=== PATIENT | male | born 1955 | race Caucasian/White ===

== ENCOUNTER 2019-07-08 20:34 | Inpatient (IN) ==
[2019-07-08] MEDS ORDERED: TYLENOL LIQUID PO ONE (20:56)
[2019-07-08 22:18] LABS: BASO# 0.03 X1000 (0.0-0.2); BASO% 0.3 % (0.0-0.8); EOS# 0.11 X1000 (0.0-0.7); EOS% 1.1 % (0.0-10.0); HEMATOCRIT 47.9 % (42.0-52.0); HEMOGLOBIN 16.2 g/dL (14.0-18.0); IMM GRAN# 0.04 X1000 (0.0-0.04); IMM GRAN% 0.4 % (0.0-0.5); LYMPH# 1.67 X1000 (1.2-3.4); LYMPH% 16.4 % (20.5-51.1); MCH 28.2 PG (27-31); MCHC 33.8 g/dL (33-37); MCV 83.3 FL (81-99); MONO# 0.58 X1000 (0.11-0.59); MONO% 5.7 % (1.7-9.3); MPV 11.3 FL (7.4-10.4); NEUT# 7.77 X1000 (1.4-6.5); NEUT% 76.1 % (42.2-75.2); PLT 150 X1000 (130-400); RBC 5.75 XMIL (4.7-6.1); RDW 17.5 % (11.5-14.5)
[2019-07-08 22:46] LABS: ALB/GLOB RATIO 1.4; ALBUMIN 4.2 g/dL (3.5-5.0); CALCIUM 8.9 mg/dL (8.8-10.2); CREATININE 1.3 mg/dL (0.7-1.2); POTASSIUM 4.1 mmol/L (3.5-5.1); TOTAL BILIRUBIN 0.28 mg/dL (0.20-1.00); TOTAL PROTEIN 7.2 g/dL (6.3-8.3)
[2019-07-08 23:40] LABS: URINE SOURCE CLEAN CATCH
[2019-07-08 23:46] LABS: BILIRUBIN URINE NEGATIVE (NEGATIVE); BLOOD URINE NEGATIVE (NEGATIVE); COLOR YELLOW; GLUCOSE URINE NEGATIVE (NEGATIVE); KETONE URINE NEGATIVE (NEGATIVE); LEUKOCYTES URINE NEGATIVE (NEGATIVE); NITRITE URINE NEGATIVE (NEGATIVE); PROTEIN URINE 30 mg/dL (NEGATIVE); TURBIDITY URINE CLEAR (CLEAR); UROBILINOGEN URINE NORMAL (NORMAL)
[2019-07-08 23:47] LABS: UR EPITHELIAL CELLS <10 /HPF (<10); URINE BACTERIA NEGATIVE /HPF; URINE RBC <10 /HPF (<10); URINE WBC <10 /HPF (<10)
[2019-07-09] MEDS ORDERED: FLAGYL 500 MG/NS 500 MG/100 ML IVPB ONE (03:49)
--- NOTE | 2019-07-09 06:18 | Diag Imaging Result Doc PS360 ---
CHEST-1 VIEW - 07/08/2019 INDICATION: fever COMPARISON: None FINDINGS: The lungs are normally expanded and clear. Heart size and mediastinal contours are normal. No pneumothorax or pleural effusion. IMPRESSION: Negative exam. Electronically signed by Clark Rodrigez 07/09/2019 6:16 AM
[2019-07-09] MEDS ORDERED: ZOFRAN IV PRN (06:31)
--- NOTE | 2019-07-09 06:36 | HISTORY AND PHYSICAL ---
PRIMARY CARE PHYSICIAN: At the [facility]. CHIEF COMPLAINT: Diarrhea for several weeks. HISTORY OF PRESENTING ILLNESS: A 64-year-old male with a history of hypertension, hypothyroidism, and BPH, who presented to emergency department with several weeks' history of having diarrhea. The patient states that he was on clindamycin about 2 to 3 weeks ago. Recently, he underwent right tonsillectomy. He states that his diarrhea continued. He was having several bouts. He was evaluated in the emergency department. He had a stool sample which did show C difficile. Subsequently, he will require admission for further management. At the time of my examination, patient denied any headache, fever, chills, chest pain, shortness of breath or any weight changes but complained of diarrhea. PAST MEDICAL HISTORY: hypertension, hypothyroidism, BPH. PAST SURGICAL HISTORY: Status post right tonsillectomy, left elbow surgery. ALLERGIES: No known drug allergies. CURRENT MEDICATIONS: Include Bystolic 5 mg p.o. daily, niacin 500 mg p.o. daily, oxycodone 5 mg p.o. daily, Cialis 5 mg p.o. daily, Flomax 0.4 mg daily, [place] thyroid 30 mg p.o. daily. SOCIAL HISTORY: No history of smoking, alcohol or illicit drug use. Patient is a dentist. FAMILY HISTORY: No history of coronary disease. REVIEW OF SYSTEMS: Fourteen point review of systems is as in HPI. Other systems negative. PHYSICAL EXAMINATION: GENERAL: Cooperative, friendly male. He is resting comfortably now. VITAL SIGNS: Temperature 101.8 degrees, pulse 77, respirations 20, blood pressure 160/76. HEENT: Atraumatic, normocephalic. Extraocular movements intact. NECK: No masses. CHEST: Clear to auscultation. CARDIOVASCULAR: Regular rate and rhythm. ABDOMEN: Soft. Positive bowel sounds. EXTREMITIES: No edema. NEUROLOGIC: He is awake, alert, oriented x3. GENITOURINARY: No bladder distention. SKIN: Warm. LABORATORIES AND STUDIES: WBC 10.20, hemoglobin 16.2, hematocrit 47.9, platelets 150,000. Sodium 140, potassium 4.1, chloride 101, CO2 24, BUN 16, creatinine 1.3, glucose is 102. C difficile toxin positive. ASSESSMENT: This is a 64-year-old male with a history of hypertension, hypothyroidism, and benign prostatic hypertrophy, who had presented to the emergency department with over a week history of having loose stools. He was evaluated in the emergency department. He had stool studies done which did show he had Clostridium difficile toxin positive. Subsequently, he will require admission for further management. 1. Clostridium difficile. 2. Hypertension. 3. Hypothyroidism. 4. Status post recent right tonsillectomy. PLAN: 1. We will admit patient to medical floor with telemetry. 2. We will keep patient on clear fluids. 3. Start patient on IV Flagyl. 4. Consult Gastroenterology. 5. Monitor blood pressure closely. 6. We will restart other home medications. 7. We will also consult ENT to follow due to his recent tonsillectomy. 8. Put patient on DVT prophylaxis with SCDs. 9. We will continue to follow, reassess, make further recommendation based on patient's clinical course. cc: Jair Rowland MD MTDD
[2019-07-09] MEDS: PATIENT'S OWN MED PO SCH (08:40)
[2019-07-09] MEDS: FLAGYL 500 MG/NS 500 MG/100 ML IVPB IV SCH ×4 (08:42→14:28)
[2019-07-09] MEDS: NS 1,000 ML IV SCH ×2 (08:43→18:40)
[2019-07-09] MEDS: FLOMAX PO SCH (08:43)
[2019-07-09] MEDS: BYSTOLIC PO SCH (08:43)
[2019-07-09] MEDS: THYROID PO SCH (08:44)
[2019-07-09] MEDS ORDERED: OXYCODONE PO SCH (09:00)
[2019-07-09] MEDS: VANCOCIN PO SCH ×3 (11:11→21:19)
[2019-07-09] MEDS ORDERED: OXYCODONE PO PRN (11:13)
[2019-07-09] MEDS: TYLENOL PO PRN ×2 (14:29→22:52)
[2019-07-09] MEDS: OXYCODONE PO PRN ×3 (14:29→22:52)
--- NOTE | 2019-07-09 15:37 | CONSULTATION ---
DATE OF CONSULTATION: 07/09/2019 REASON FOR CONSULT: Diarrhea. HISTORY OF PRESENT ILLNESS: Mr. Gaspar is a 64-year-old male who was admitted to the hospital for diarrhea. He has been having this diarrhea for the past 1 week. He stated that he has been going every 2 hours, It is liquid in consistency and has mucus. He denied any nausea or abdominal pain. He mentioned that in May he took clindamycin 300 mg 3 times a day, after his medication was done he started having diarrhea. He did have a bowel movement today but he had it yesterday. He came to the ER yesterday because he started to feel shaky and was sweating, He had a tonsillectomy done by Dr. Alford on Saturday of this week and he still has jaw pain on the right side of his face. His stool studies are positive for C-diff. He had a colonoscopy done last year and they found couple of polyps. PAST MEDICAL HISTORY: He has diabetes type 2 but he does not take any medicines or insulin, heart attack, stroke 15 years back, hypothyroidism, BPH, hypertension. SURGERIES: Left elbow surgery, umbilical hernia repair, nose surgery for his sinus and recently had tonsillectomy done. ALLERGIES: He is not allergic to any medicine. MEDICATIONS: His home medicines are Nebivolol, niacin, oxycodone, Flomax, Thyroid [place], and Cialis. FAMILY HISTORY: His younger brother has type 2 diabetes. No family history of GI malignancies. SOCIAL HISTORY: He is . He has three children and five grandchildren. He denies being a smoker or having any alcohol. He is a dentist by profession. REVIEW OF SYSTEMS: As per HPI. Otherwise, 12 point review of systems is negative. PHYSICAL ASSESSMENT: Vital Signs: Temperature 98.7 degrees, pulse rate is 60, blood pressure is 140/66, oxygen saturation is 97% on room air.Wt. 152 pounds, BMI 20.7 kg per meter square. General: He is alert, oriented x3, and in no acute distress. HEENT: Pale conjunctivae, no icterus. PERRL. Neck: Supple. Cardiac: Regular rate and rhythm. No rubs, murmurs, or gallops heard on auscultation. Lung Sounds: Clear to auscultation in all the wells anterior and posterior. Abdomen: Soft, nontender, nondistended. Active bowel sounds heard in all 4 quadrants. Extremities: No cyanosis, clubbing, or edema noted. Pulses 2+ present bilaterally. Neurologic: Alert and oriented x3. Nonfocal. Cranial nerves II to XII grossly intact. LABORATORY DATA: WBCs 10.2, RBCs 5.75, hemoglobin of 15.2, hematocrit of 47.9, platelets are 150,000. Chemistry: Sodium is 142, potassium is 4.1, chloride is 101, carbon dioxide is 24 , anion gap is 15, BUN is 16, creatinine is 1.3. Urine showed trace of protein. Chest x-ray showed negative exam. MICROBIOLOGY: Clostridium difficile toxin is positive. ASSESSMENT: 1. Diarrhea. 2. Clostridium difficile. 3. Hypertension. 4. Diabetes. 5. Hypothyroidism. 6. Status post tonsillectomy. 7. Benign prostatic hypertrophy. PLAN: The plan is to keep the patient on a clear liquid diet and advance as tolerated. He is getting antibiotics, Flagyl IV and vancomycin p.o., antiemetics, Zofran, and normal saline @ 100 mls/hr. We have added probiotics to his medication regimen and asked him to have yogurt with his diet. Patient is positive for C-diff, educated the patient on how to prevent contamination and advised to maintain proper hand hygiene. We will continue to monitor the patient and follow the plan of care of his primary care team. Thank you for the consultation.. Please call us for any further questions or concerns. Dictated by CHULA Ruiz for Pete Urena MD cc: Pete Urena MD I have seen and examined the patient myself and I agree with the above assessment and plan of care. Please call us with any further questions or concerns. MILENA
[2019-07-09] MEDS: CULTURELLE PO SCH (21:19)
[2019-07-10] MEDS: VANCOCIN PO SCH ×2 (03:44→09:11)
[2019-07-10] MEDS: OXYCODONE PO PRN ×2 (03:45→09:06)
[2019-07-10] MEDS: NS 1,000 ML IV SCH (03:45)
[2019-07-10 07:28] LABS: BASO# 0.05 X1000 (0.0-0.2); BASO% 0.5 % (0.0-0.8); IMM GRAN# 0.03 X1000 (0.0-0.04); IMM GRAN% 0.3 % (0.0-0.5); LYMPH# 1.79 X1000 (1.2-3.4); LYMPH% 17.1 % (20.5-51.1); MCHC 33.3 g/dL (33-37); MONO# 0.93 X1000 (0.11-0.59); MONO% 8.9 % (1.7-9.3); MPV 10.9 FL (7.4-10.4); NEUT# 7.54 X1000 (1.4-6.5); NEUT% 72.2 % (42.2-75.2); PLT 147 X1000 (130-400); RBC 5.36 XMIL (4.7-6.1); RDW 17.1 % (11.5-14.5); WBC 10.44 X1000 (4.8-10.8)
[2019-07-10 07:39] VITALS: BP 151/78
[2019-07-10 07:41] LABS: CALCIUM 8.7 mg/dL (8.8-10.2); CREATININE 1.3 mg/dL (0.7-1.2); POTASSIUM 4.2 mmol/L (3.5-5.1)
[2019-07-10] MEDS: CULTURELLE PO SCH (09:10)
[2019-07-10] MEDS: BYSTOLIC PO SCH (09:10)
[2019-07-10] MEDS: FLOMAX PO SCH (09:10)
[2019-07-10] MEDS: PATIENT'S OWN MED PO SCH (09:11)
[2019-07-10] MEDS: THYROID PO SCH (09:11)
--- NOTE | 2019-07-10 12:21 | PROGRESS NOTE ---
DATE: 07/10/2019 SUBJECTIVE: The patient was sitting at the side of the bed eating applesauce. He was able to tolerate his food well. Denied any nausea, vomiting or abdominal pain. He complained that he had lose stools which started around 3.30 am this morning and later around 6.30 am. He denied any blood in the stools. He has been complaining that his jaw has been hurting when he swallows due to his recent tonsillectomy. OBJECTIVE: Vital Signs:Temperature 97.7 degrees, pulse is 57, respirations 16, blood pressure 151/78, oxygen saturation is 98% on room air. Wt. 152 pounds, BMI 20.7 Kg per meter square. General Appearance: He is alert, oriented x3, and in no acute distress. HEENT: Pale conjunctivae. No icterus. PERRL. Neck: Supple. Lungs: Clear to auscultation in the anterior and posterior wells. Cardiovascular: Regular rate and rhythm. No gallops, rubs or murmurs heard on auscultation. Abdomen: Soft, nontender,nondistended. Active bowel sounds heard in all 4 quadrants. Extremities: No cyanosis, clubbing, or edema noted. Pulses 2+ present bilaterally. Neurological: Alert, oriented x3. LABORATORY DATA: WBCs 10.4, RBCs 5.36, hemoglobin 15, hematocrit 45, platelet count is 147,000. Sodium is 140, potassium is 4.2, chloride is 100, carbon dioxide is 29, anion gap 11, BUN is 11, creatinine is 1.3, calcium is 8.7. Urinalysis done on 07/08/2019 showed trace of protein. IMAGING: X-ray showed negative exam. ASSESSMENT AND PLAN: 1. Diarrhea. 2. Clostridium difficile. 3. Hypertension. 4. Diabetes. 5. Hypothyroidism. 6. Status post tonsillectomy. 7. Benign prostatic hyperplasia. PLAN: Mr. Gaspar is 64-year-old male who is still having diarrhea. He is able to tolerate clear liquids, we have advance his diet to full liquid and then advance as tolerated to regular diet. We will continue to follow his antibiotics regimen Flagyl and vancomycin, continue probiotics, antiemetics and IV fluids normal saline at 100 mL/h. He is positive for Clostridium difficile, we educated him on how to prevent contamination and advised him to maintain proper hand hygiene. His pain is managed by his PCP. We will continue to watch his electrolytes and follow the plan of care per primary care team. From GI standpoint he can be discharged. This plan was discussed with Dr. George and the patient. Patient acknowledges understanding the plan of care. Please call us for any further questions or concerns. Dictated by CHULA Ruiz for Declan George MD MTDD
[2019-07-10] MEDS ORDERED: VANCOCIN PO SCH (14:00)
--- NOTE | 2019-07-10 22:16 | DISCHARGE SUMMARY ---
ADMISSION DATE: 07/09/2019 DISCHARGE DATE: 07/10/2019 DISPOSITION: Home. FOLLOWUP: 1. Dr. Alford. 2. Dr. Urena. CONSULTATIONS DURING THIS ADMISSION: 1. GI was consulted. The patient was seen by Dr. Urena. INVASIVE PROCEDURES DONE DURING THIS ADMISSION: None. IMAGING STUDIES OF SIGNIFICANCE: A chest x-ray was negative. ADMISSION DIAGNOSES: 1. Clostridium difficile diarrhea. 2. Hypertension. 3. Hypothyroidism. 4. Recent right tonsillectomy. DIAGNOSES AT THE TIME OF DISCHARGE: 1. Clostridium difficile diarrhea. 2. Hypertension. 3. Hypothyroidism. 4. Recent right tonsillectomy. 5. Renal insufficiency. DISCHARGE MEDICATIONS: Bystolic 5 mg p.o. daily, Niacin 5 mg p.o. daily, Tamsulosin 0.4 p.o. daily, [place] Thyroid 30 mg p.o. daily, Cialis 5 mg p.o. daily, Vancomycin 125 every 6 hours for 10 a total of 10 days. PRESENTING COMPLAINT: Diarrhea for several weeks. HISTORY OF PRESENTING COMPLAINT: Mr. Gaspar is a 64-year-old male who underwent a right tonsillectomy about 2 weeks ago. Patient was started on clindamycin. Subsequently he started having profuse diarrhea. He came to the emergency department. He was evaluated and was found to be slightly dehydrated, and C difficile toxin was positive. He was subsequently admitted for further medical care. HOSPITAL COURSE: Mr. Gaspar was started initially on IV metronidazole and p.o. vancomycin. He did improve overnight. Diarrhea resolved. GI was consulted. The patient was seen by Dr. Urena. Metronidazole was discontinued. Patient was only on p.o. vancomycin. Today he feels a lot better. He has been afebrile. Vitals are stable. ASSESSMENT/PLAN: We think he is stable for discharge. He is going to continue with p.o. vancomycin for a total of 10 days, and he will follow up with Dr. Urena on outpatient basis. All the discharge instructions have been discussed with him, and he voiced understanding. TIME SPENT FOR DISCHARGE: 32 minutes. cc: Chase Davis MD
--- NOTE | 2019-07-10 23:56 | PROVIDER PROGRESS NOTE ---
Progress Note S: No acute overnight events. Two small BMs yesterday. Tolerating soft diet. No ab pain. O: Last Vital Signs Temp 97.7 F 07/10/19 07:38 Pulse 67 07/10/19 07:38 Resp 16 07/10/19 07:38 BP 151/78 07/10/19 07:38 Pulse Ox 98 07/10/19 07:38 Height 6 ft Weight 152 lb 6 oz GEN: awake, alert, NAD HEENT: anicteric, MMM NECK: supple, no JVD PULM: CTAB, no wheezing CV: RRR, no murmurs ABD: soft NT/ND, NABS EXT: no cce NEURO: nonfocal LABS: Reviewed, stable. Cr 1.3 A/P: Mr. Josiah Gaspar is a 64 year old man who presents with initial episode of CDI in setting of recently clindamycin therapy. He should continue vancomycin therapy for 10 years at reduced dose of 125mg QID. He can advance diet as tolerated follow-up with primary PCP. Probiotics is not necessary. He can take prn when antibiotics indicated. # CDI # Elevated Cr Will sign off. Please call with questions.
--- NOTE | 2019-07-14 17:40 | PROVIDER DOCUMENTATION ---
This chart was entered by Josephine James Scribe, acting as scribe for Donovan Carranza MD. HPI-General Adult - General Chief Complaint: Post Op Complaint Stated Complaint: POST OP COMP Time Seen by Provider: 07/08/19 22:53 Source: patient - History of Present Illness -Gen Adult Nature of Presenting Problems: pt is a 64 yr old male presenting with with complaint of 2 days diarrhea, fever/chills today. pt admits recent tonsillectomy and recent use of ABX, pt denies any abdominal pain. pt admits mucous diarrhea 1x daily x 2 days. Location of Pain/Injury: reports: none Pain Radiation: reports: no radiation Quality of Pain: reports: none Severity: reports: moderate Onset/Duration: reports: 2 days ago Timing: reports: changing over time Context/Activities at Onset: reports: other (recent ABX use) Modifying Factors: improves with: nothing Associated Symptoms: reports: diarrhea, fatigue, fever/chills, weakness. denies: back/neck pain, chest pain, nausea, vomiting Similar Symptoms Previously?: No Recently seen or treated by another doctor?: Yes Review of Systems - Adult - REVIEW OF SYSTEMS - ADULT Constitutional: reports: chills, fever, fatique Eyes: reports: no symptoms reported Ears, Nose, Mouth & Throat: reports: no symptoms reported Cardiovascular: denies: chest pain, palpitations, syncope Respiratory: denies: cough, shortness of breath Gastrointestinal: reports: diarrhea. denies: abdominal pain, nausea, vomiting Genitourinary: reports: no symptoms reported Musculoskeletal: reports: no symptoms reported Integumentary: reports: no symptoms reported Neurological: denies: dizziness/vertigo, headache/migraines Psychiatric: reports: no symptoms reported Endocrine: reports: no symptoms reported Hematologic/Lymphatic: reports: no symptoms reported Allergic/Immunologic: reports: no symptoms reported All Other Systems: Reviewed and Negative Past History - Adult - PAST MEDICAL HISTORY-ADULT Review of Records: reports: Old Records Reviewed, Nursing Assessment Review, Medications Reviewed, Social history reviewed & non-contributory. Major Childhood Illnesses: reports: denies history Cardiovascular: reports: denies history Respiratory: reports: denies history Gastrointestinal: reports: denies history Obstetrical/Gynecological: reports: denies history Genitourinary: reports: denies history Musculoskeletal: reports: denies history Neurological: reports: denies history Endocrine/Immune: reports: denies history Other Conditions: reports: denies history - IMMUNIZATION STATUS Childhood Immunizations: See Nurse Assessment Flu Vaccine: See Nurse Assessment - FAMILY HISTORY Family History: reviewed, not pertinent - SOCIAL HISTORY Living Situation: family Physical Exam-General - PHYSICAL EXAM-ADULT Initial Vital Signs Reviewed: Yes - CONSTITUTIONAL General Appearance: alert, no apparent distress - EYES Eyes: PERRL/EOMI - HEAD, EARS, NOSE, MOUTH & THROAT HENMT: normocephalic/atraumatic, moist mucous membranes, other (post surgical changes to right pharynex, no bleeding or edema) - NECK Neck: non-tender, full range of motion, supple - RESPIRATORY Respiratory: chest non-tender, lungs clear, normal breath sounds, no respiratory distress, no accessory muscle use - CARDIOVASCULAR Cardiovascular: normal peripheral pulses, regular rate, rhythm, no edema - GASTROINTESTINAL (ABDOMEN) Abdominal Exam: normal bowel sounds, non tender, soft - LYMPHATIC Lymphatic: no adenopathy - MUSCULOSKELETAL Back Exam: normal inspection Extremity: normal range of motion, non-tender, normal gait, normal inspection - SKIN Integumentary: normal color, normal turgor, warm/dry - NEUROLOGIC Neurologic: grossly normal - PSYCHIATRIC Psych/Mental Status: normal mood/affect Progress - PLAN OF CARE/RESULTS Progress/Plan/Lab Results: Vital Signs - 8 hr 07/08/19 20:42 Temperature 101.8 F H Pulse Rate 77 Respiratory Rate 20 Blood Pressure 163/76 O2 Sat by Pulse Oximetry 96 Laboratory Results - last 24 hr 07/08/19 07/08/19 07/08/19 21:03 21:03 21:03 WBC 10.20 RBC 5.75 Hgb 16.2 Hct 47.9 MCV 83.3 MCH 28.2 MCHC 33.8 RDW Std Deviation 17.5 H Plt Count 150 MPV 11.3 H Immature Gran % (Auto) 0.4 Neut % (Auto) 76.1 H Lymph % (Auto) 16.4 L [place] % (Auto) 5.7 Eos % (Auto) 1.1 Baso % (Auto) 0.3 Immature Gran # (Auto) 0.04 Neut # (Auto) 7.77 H Lymph # (Auto) 1.67 [place] # (Auto) 0.58 Eos # (Auto) 0.11 Baso # (Auto) 0.03 Sodium 140 Potassium 4.1 Chloride 101 Carbon Dioxide 24 L Anion Gap 15 BUN 16 Creatinine 1.3 H Estimated GFR/1.73 m2 55 BUN/Creatinine Ratio 12 Glucose 102 Calculated Osmolality 281 Calcium 8.9 Total Bilirubin 0.28 AST 27 ALT 27 Alkaline Phosphatase 32 Total Protein 7.2 Albumin 4.2 Globulin 3.0 Albumin/Globulin Ratio 1.4 Plasma Lactate 2.2 Orders Category Date Time Status BLOOD CULTURE [BLDCUL] Stat Lab 07/08/19 21:03 Results C DIFF TOXIN [STOOL] Stat Lab 07/08/19 23:02 Uncollected CBC WITH ELECTRONIC DIFF [HEME] Stat Lab 07/08/19 21:03 Completed CMP [COMPREHENSIVE METABOLIC PANEL] [CHEM] Stat Lab 07/08/19 21:03 Completed LACTATE, PLASMA [CHEM] Stat Lab 07/08/19 21:03 Completed Acetaminophen Liquid [Tylenol Liquid] Med 07/08/19 20:56 Discontinued 650 mg PO NOW ONE Result Diagrams: 07/10/19 07:10 07/10/19 07:10 Departure - Departure Date of Disposition Decision: 08/08/19 Time of Disposition Decision: 01:00 DIAGNOSIS: C. difficile diarrhea Disposition: ADMITTED INPATIENT 09 Certified Medical Emergency: Emergent Condition: Fair - Critical Care Note This patient required my direct & personal management of CC.: No Attestation - Physician/ SUKHWINDER Attestation Patient care was provided by Advanced Practice Provider:: No The physician spent face to face time with patient:: Yes Advanced Practice Provider documentation review:: Supervising physician onsite and consulted in the evaluation and care of this patient. The physician did have a face to face encounter with the patient. This chart was documented by the indicated scribe, (Josephine James Scribe) and accurately reflects the services I performed and decisions made by me, Donovan Carranza MD, as attested by the provider's signature.
== END 2019-07-10 13:31 | disposition home or self-care (01) | DRG 373 ==
LOC: ED 20:34 → 3N 07-09 06:19 → SUATTDRO 07-09 06:19
PROVIDERS: ATTEND Internal Medicine